=== PATIENT | male | born 1970 | race Caucasian/White ===

== ENCOUNTER 2025-02-11 18:01 | Emergency (ER) | payer BC, SELFPAY ==
--- NOTE | ~2025-02-11 | XR_ITS ---
CLINICAL HISTORY: cough, fever 2 view chest x-ray Comparison: None provided Findings: The lungs are clear. Heart size is normal. No acute fracture. IMPRESSION: 1. No acute findings. This document has been electronically signed by: Evangelista Ricketts MD on 02/11/2025 18:27:39
[2025-02-11 18:08] VITALS: BP 150/71; PULSE 81; RESP 18; TEMP 38.1; O2SAT 98; BMI 23.6
--- NOTE | 2025-02-11 18:08 | ED.GENADULT ---
HPI - General Adult General Chief complaint: General Medical Stated complaint: extreme fever, nausea Related Data Allergies Allergy/AdvReac Type Severity Reaction Status Date / Time naproxen (From Aleve) Allergy Hives Verified 02/11/25 18:11 [facility] Social History Social History Advance Directives: No Advance Directives Information Provided: No Do you have a plan to hurt others: No Plan Physical Exam ED Vital Signs: Vital Signs - 24 hr 02/11/25 18:08 Temperature 100.5 F H Pulse Rate 81 Respiratory Rate 18 Blood Pressure 150/71 H Pulse Oximetry 98 Oxygen Delivery Method Room Air BMI result Body Mass Index 23.6 Course Course Course Narrative: This is a Rapid Medical Examination (RME) performed by Mic Crump PA-C in triage. Full HPI, ROS, assessment and treatment plan per primary provider in the Main ED. Hx: 55 yo M here with fevers, posterior neck pain, dry cough, and extreme fatigue x1 week. no known sick or insect bites. states he has not been outside very often. seen at , neg covid/rsv/flu/strep, given tylenol and told to come to ED. PE/vitals: Posterior oropharynx without erythema or edema, no tonsillar exudates or peritonsillar masses, uvula midline, controlling secretions, speaking in complete sentences. Hoarse voice. No cervical lymphadenopathy. no tenderness over midline c spine. able to flex chin to chest without significant pain. Plan: labs, repeat viral/strep swabs Reevaluation(s) Reevaluation #1: Patient left the emergency department before myself or any of the other clinicians could review or explain physical exam findings, test results, need or lack there of for additional testing, treatment options, or a treatment plan. Medical Decision Making Lab Data 02/11/25 18:48 02/11/25 18:48 Labs: Lab Results 02/11/25 Range/Units 18:48 WBC 5.5 (4.8-10.8) X10*3/uL RBC 4.04 L (4.60-5.80) X10*6/uL Hgb 12.5 L (14.0-18.0) g/dl Hct 34.5 L (42.0-52.0) % MCV 85.4 (80.0-98.0) fL MCH 30.9 (27.0-33.0) pg MCHC 36.2 H (31.0-36.0) g/dl RDW 12.5 (11.0-16.0) % Plt Count 223 (160-400) X10*3/uL MPV 8.5 L (9.4-12.4) fL Immature Gran % (Auto) 0.2 (0.0-0.4) % Neut % (Auto) 53.0 (45-73) % Lymph % (Auto) 26.4 (20-40) % [place] % (Auto) 16.7 H (2-11) % Eos % (Auto) 3.3 (0-4) % Baso % (Auto) 0.4 (0-2) % Lymph # (Auto) 1.5 (1.2-4.9) X10*3/uL [place] # (Auto) 0.9 (0.1-1.2) X10*3/uL Eos # (Auto) 0.2 (0.0-0.4) X10*3/uL Baso # (Auto) 0.0 (0.0-0.2) X10*3/uL Abs Immat Gran (auto) 0.01 (0.00-0.03) X10*3/uL Absolute Neuts (auto) 2.9 (2.0-8.3) x10*3/uL Absolute Nucleated RBC 0.000 (0.0-0.012) X10*3/uL Nucleated RBC % (auto) 0.0 (0.0-0.2) /100WBC Sodium 132 L (135-145) mmol/L Potassium 3.6 (3.3-5.1) mmol/L Chloride 95 L (96-108) mmol/L Carbon Dioxide 28 (22-29) mmol/L Anion Gap 13 (12-20) BUN 9 (9-16) mg/dL Creatinine 1.07 (0.5-1.4) mg/dL Estim Creat Clear Calc 75.4 Estimated GFR > 60 Random Glucose 109 (60-115) mg/dL Calcium 8.9 (8.4-10.2) mg/dL Magnesium 2.1 (1.6-2.6) mg/dL Total Bilirubin 0.4 (0.0-1.0) mg/dL AST 51 H (5-37) U/L ALT 37 (0-40) U/L Alkaline Phosphatase 71 (39-117) U/L Total Protein 7.2 (6.5-8.0) g/dL Albumin 4.3 (3.5-5.0) g/dL Influenza Type A (PCR) NEGATIVE (Negative) Influenza Type B (PCR) NEGATIVE (Negative) RSV RNA Qual (PCR) NEGATIVE (Negative) SARS-CoV-2 RNA (RT-PCR) NEGATIVE (Negative) S. pyogenes GrpA TOBI Negative (Negative) Discharge Plan Discharge Clinical Impression: Fever Patient Disposition: Left W/O Completing Treatment Discharge Date/Time: 02/11/25 22:16
[2025-02-11 18:55] LABS: MANUAL DIFF FLAG NO
[2025-02-11 18:58] LABS: Hematocrit 34.5 % (42.0-52.0); Hemoglobin 12.5 g/dl (14.0-18.0); Imm Gran Abs Auto 0.01 X10*3/uL (0.00-0.03); Imm Gran Pct Auto 0.2 % (0.0-0.4); Lymphocytes Absolute Auto 1.5 X10*3/uL (1.2-4.9); Mean Corpuscular HGB Conc 36.2 g/dl (31.0-36.0); Mean Corpuscular Hemoglobin 30.9 pg (27.0-33.0); Mean Corpuscular Volume 85.4 fL (80.0-98.0); NRBC Abs Auto 0.000 X10*3/uL (0.0-0.012); NRBC Pct Auto 0.0 /100WBC (0.0-0.2); Platelet Count 223 X10*3/uL (160-400); Red Blood Count 4.04 X10*6/uL (4.60-5.80); White Blood Count 5.5 X10*3/uL (4.8-10.8)
[2025-02-11 19:02] LABS: IDNOW Serial# 58CA691E; Strep A Nucleic Acid Negative (Negative)
[2025-02-11 19:12] LABS: Alanine Aminotransferase 37 U/L (0-40); Albumin Level 4.3 g/dL (3.5-5.0); Alkaline Phosphatase 71 U/L (39-117); Anion Gap 13 (12-20); Aspartate Amino Transferase 51 U/L (5-37); Blood Urea Nitrogen 9 mg/dL (9-16); Calcium 8.9 mg/dL (8.4-10.2); Carbon Dioxide 28 mmol/L (22-29); Chloride 95 mmol/L (96-108); Creatinine Clr Calc Pharmacy 75.4; Estimated Glomerular Filt Rate > 60; Magnesium 2.1 mg/dL (1.6-2.6); Potassium 3.6 mmol/L (3.3-5.1); Sodium 132 mmol/L (135-145); Total Protein 7.2 g/dL (6.5-8.0)
[2025-02-11 19:41] LABS: Resp Syncy Virus RNA Qual PCR NEGATIVE (Negative); SARS COV2 PCR INHOUSE NEGATIVE (Negative)
--- NOTE | 2025-02-11 22:15 | PC.NURSE ---
[facility] d/t wait time.
--- OUTSIDE RECORDS SUMMARY | 2025-02-11 22:15 | XMS_ITS | Encounter Summary ---
Author Organization [facility] Address [address] [place] [address] Care Team Providers Care Cupola Liner Helper Name Role Phone Akshat Chowdary MD Primary Care Provider Encounter Details Date Type Department Care Team (Latest Contact Info) Description 06/23/2024 Lab Requisition [facility] - Main Lab [address] [facility] [place] [address] Markie Harper MD [address] [address] Encounter for sterilization Social History Tobacco Use Types Packs/Day Years Used Date Smoking Tobacco: Former Smokeless Tobacco: Never Alcohol Use Standard Drinks/Week Comments Yes 0 (1 standard drink = 0.6 oz pur e alcohol) Sex and Gender Information Value Date Recorded Sex Assigned at Not on file Legal Sex Male 11:09 AM EST Gender Identity Not on file Sexual Orientation Not on file documented as of this encounter Plan of Treatment Not on file documented as of this encounter Procedures Procedure Name Priority Date/Time Associated Diagnosis Comments AP OUTSIDE CONSULT Routine 06/20/2024 Encounter for sterilization documented in this encounter Results * Anatomic pathology outside consult (06/20/2024) Final Diagnosis A. Vas Deferens, Right: -SEGMENT OF NORMAL VAS DEFERENS WITH EPITHELIUM/ LUMEN IDENTIFIED. B. Vas Deferens, Left: -SEGMENT OF NORMAL VAS DEFERENS WITH EPITHELIUM/ LUMEN IDENTIFIED. 06/26/2024 12:43 PM EST [facility] Clinical Information Z30.2 Encounter for sterilization [id number] 06/26/2024 12:43 PM EST [facility] Gross Description A. Vas Deferens, Right, Right Vas Deferens: Labeled right vas deferens . Received in formalin is a 0.2 x 0.3 cm rubbery, membreno, tubular portion of tissue, with a central pinpoint lumen, which is submitted in toto in one cassette, between sponges, one piece, embed on end. (The luminal aspect is inked red to assist with embedding orientation.) B. Vas Deferens, Left, Left Vas Deferens: Labeled left vas deferens . Received in formalin is a 0.2 x 0.3 cm rubbery, membreno, tubular portion of tissue, with a central pinpoint lumen, which is submitted in toto in one cassette, between sponges, one piece, embed on end. (The luminal aspect is inked red to assist with embedding orientation.) /al 06/26/2024 12:43 PM [facility] Disclaimer Unless otherwise specified, all tissue is 10% NB formalin fixed and paraffin embedded. Technical pathology services provided by [facility] at [address] [place] [address] [address], [place] [address] (CLIA #[id number]/Soila Mccormack MD, Saw Operator) 06/26/2024 12:43 PM EST [facility] Tissue Structure of left vas deferens / Unknown 06/20/2024 06/23/2024 5:19 PM EST Tissue specimen (specimen) Structure of left vas deferens / Unknown 06/20/2024 06/23/2024 5:19 PM EST us Markie Harper MD LAB PATHOLOGY ORDERABLES Fin al Result [facility] [address] [place] [address], documented in this encounter Visit Diagnoses Diagnosis Encounter for sterilization Sterilization documented in this encounter Care Teams Cupola Liner Helper Relationship Specialty Start Date End Date Akshat Chowdary MD PCP - General Internal Medicine 03/15/17 documented as of this encounter
--- OUTSIDE RECORDS SUMMARY | 2025-02-11 22:16 | XMS_ITS | Patient Health Record ---
Author Organization [facility] [address] Address [address] [place] [address] Care Team Providers Care Glass Smoother Name Role Phone Yanira Sorto Unavailable [phone] MARY LONGO Unavailable [phone] Allergies Allergen (clinical drug ingredient) Drug/Non Drug Allergy documented on EMR Reaction Allergy Type Onset Date Status naproxen Naproxen hives Drug Allergy Active Alive Adult Premium Unknown Drug Allergy Active Reason For Referral Reason Urology PVU Diagnosis 1 Vasectomy evaluation (Z30.09) Referral Organization [facility] [address] Referring Provider First Name MARY Referring Provider Last Name DONTA Referring Provider Speciality Internal M edicine Referred Provider Specialty Urology General Notes Joann Serna 03/19/2024 10:23:04 AM > Faxed referral and office notes, gave pt phone number to schedule appt. phone [phone] fax: [phone] Antonio Redena 03/26/2024 03:57:01 PM > Scheduled for an appointment on 04/25/2024 at 10:30 am. Pt aware Referral Priority Routine Medications Medication SIG (Take, Route, Fr equency, Duration) Notes Start Date End Date Status ZyrTEC Allergy 10 MG 1 tablet Orally Once a day Active Omeprazole 10 MG 1 capsule 30 minutes before morning meal Orally Once a day A ctive Social History Tobacco Use: Social History Observation Description Date Details (start date - stop date) Former Smoker NA - NA Tobacco Use/Smoking Question Answer Notes Are you a former smoker How long has it been since y ou last smoked? > 10 years Additional Findings: Tobacco User Light cigarett e smoker ((1-9 cigs/day) Alcohol Screen (Audit-C) Question Answer Notes Did you have a drink contain ing alcohol in the past year? Yes How often did you have a dri nk containing alcohol in the past year? 2 to 3 times a week (3 points) How many drinks did you have on a typical day when you were drinking in the past year? 1 or 2 drinks (0 point) How often did you have 6 or more drinks on one occasion in the past year? Never (0 point) Points 3 Interpretation Negative Problems Problem Type SNOMED Code ICD Code Onset Dates Problem Status W/U Status Risk Notes Problem Vitamin D deficiency (12551416) Vitamin D deficiency, unspecified (E55.9) Active confirmed Problem Lipid screening (233809642) Encounter for screening for lipoid disorders (Z13.220) Active confirmed Problem Essential hypertension (07848486) Essential hypertension (I10) Active confirmed Problem Seasonal allergy (248646099) Seasonal allergies (J30.2) Active confirmed Problem Gastroesophageal reflux disease without esophagitis (415770832) Gastroesophageal reflux disease without esophagitis (K21.9) Active confirmed Problem Contraception care education (884796415) Vasectomy evaluation (Z30.09) Active confirmed Problem Gastroesophageal reflux disease (264658914) GERD without esophagitis (K21.9) Active confirmed Vital Signs Heart Rate 78 /min 04/18/2024 Blood pressure diastolic 77 mm Hg 04/18/2024 Oximetry 97 % 04/18/2024 Height 70 in 04/18/2024 Blood pressure systolic 144 mm Hg 04/18/2024 Weight 174 lbs 04/18/2024 BMI 24.96 kg/m2 04/18/2024 Encounters Encounter Location Date Provider Diagnosis [facility] [address] [address] 03/19/2024 MARY LONGO Seasonal allergies J 30.2 ; Encounter for general adult medical examination without abnormal findings Z00.00 ; Gastroesophageal reflux disease without esophagitis K21.9 ; Encounter for screening for lipoid disorders Z13.220 and Vitamin D deficiency, unspecified E55.9 [facility] [address] [address] 04/18/2024 MARY LONGO Annual physical exam Z00.00 ; Essential hypertension I10 ; GERD without esophagitis K21.9 and Seasonal allergies J30.2 [facility] [address] [id number] MARY LONGO Assessments Encounter Date Diagnosis (ICD Code) Assessment Notes Treatment Notes Treatment Clinical Notes Section Notes 03/19/2024 Encounter for general adult medical examination without abnormal findings (ICD-10 - Z00.00) Frank is a 54-year-old male with history of acid reflux and seasonal allergies who presents to the office today for new patient visit. Patient was warmly welcomed to the practice. He is coming from [facility] and last CPE with labs approximately 1 year ago. Medication, allergies, surgeries, hospitalizations, and social history reviewed with the patient. Problem list updated. This morning the patient reports he feels well and offers no acute complaints. Requesting referral to urology for vasectomy. On exam patient is alert and oriented to person, place, time, and event. Cardiopulmonary exam and abdominal exam unremarkable. The patient will follow-up in office on 1 month for CPE and labs. All patient questions answered to his satisfaction. #Acid reflux: Stable at this time, patient is asymptomatic. Reports he has had an endoscopy before which led to diagnosis of silent acid reflux. Continue aegs-itv-dqczaix omeprazole as needed. Educated on proper use of medication and side effect profile. #Seasonal allergies: Stable at this time. Continue ahgd-tzs-mzwuplf Zyrtec. Educated on proper use of medication and side effect profile. #Single episode of high blood pressure: BP this morning 152/84. Patient does not take anti-hypertensives. Lifestyle modifications to lower blood pressure include consuming healthy diet, reducing salt intake, exercising, and maintaining a healthy weight. Patient educated on red flag signs of hypertension including but not limited to headache, chest pain, shortness of breath, nausea, vomiting, and diarrhea. Will follow-up in 4 weeks. All questions have been answered to patient's satisfaction. Patient verbalized understanding of diagnosis and treatments explained. To call sooner prior to next visit it any questions/concerns arise. Case discussed with collaborating physician Chichi Davis who reviewed the assessment and plan. Chart, medications, labs, vital signs reviewed. Dictation was accomplished with the use of [employer] voice recognition software, which is prone to medical misidentifications and grammatical errors. This are unintentional and the practitioner does try to identify and correct these, but some could still be present. Please do not hesitate to contact practitioner for clarification. 03/19/2024 Seasonal allergies (ICD-10 - J30.2) Frank is a 54-year-old male with history of acid reflux and seasonal allergies who presents to the office today for new patient visit. Patient was warmly welcomed to the practice. He is coming from [facility] and last CPE with labs approximately 1 year ago. Medication, allergies, surgeries, hospitalizations, and social history reviewed with the patient. Problem list updated. This morning the patient reports he feels well and offers no acute complaints. Requesting referral to urology for vasectomy. On exam patient is alert and oriented to person, place, time, and event. Cardiopulmonary exam and abdominal exam unremarkable. The patient will follow-up in office on 1 month for CPE and labs. All patient questions answered to his satisfaction. #Acid reflux: Stable at this time, patient is asymptomatic. Reports he has had an endoscopy before which led to diagnosis of silent acid reflux. Continue qfdb-rpl-ofbvdec omeprazole as needed. Educated on proper use of medication and side effect profile. #Seasonal allergies: Stable at this time. Continue itrq-okq-ymeqnjx Zyrtec. Educated on proper use of medication and side effect profile. #Single episode of high blood pressure: BP this morning 152/84. Patient does not take anti-hypertensives. Lifestyle modifications to lower blood pressure include consuming healthy diet, reducing salt intake, exercising, and maintaining a healthy weight. Patient educated on red flag signs of hypertension including but not limited to headache, chest pain, shortness of breath, nausea, vomiting, and diarrhea. Will follow-up in 4 weeks. All questions have been answered to patient's satisfaction. Patient verbalized understanding of diagnosis and treatments explained. To call sooner prior to next visit it any questions/concerns arise. Case discussed with collaborating physician Chichi Davis who reviewed the assessment and plan. Chart, medications, labs, vital signs reviewed. Dictation was accomplished with the use of [employer] voice recognition software, which is prone to medical misidentifications and grammatical errors. This are unintentional and the practitioner does try to identify and correct these, but some could still be present. Please do not hesitate to contact practitioner for clarification. 04/18/2024 Essential hypertension (ICD-10 - I10) Patient seen and examined. Comprehensive discussion was done on the following. # Acid reflux: Stable at this time, asymptomatic in office today. Reports history of an endoscopy at which time led to the diagnosis of silent acid reflux. Continue pnpb-saq-jbtiaof omeprazole as needed. Educated proper use of medication and expected side effect profile. Will continue to monitor. # Seasonal allergies: Stable at this time. Continue ycws-xpz-rrdnoev Zyrtec as needed. Educated on proper use of medication and expected side effect profile. Will continue to monitor. # Hypertension: Blood pressure in office today 144/77. Blood pressure at previous visit 152/84. Patient does not take any antihypertensives. He states that he would prefer not to take an antihypertensive medication at this time. We discussed that untreated high blood pressure can increase the risk of other comorbidities including stroke, kidney disease, heart attack, and aneurysm among others. Patient states that he has a blood pressure monitor at home. Advised the patient that he should monitor his blood pressure over the next 1 to 2 weeks and document those pressures on a piece of paper. Goal blood pressure is less than 130/90. Advised to contact the office after 1 to 2 weeks of documented pressures and inform staff of these numbers. Will continue to monitor and may need to see sooner for blood pressure follow-up. Patient demonstrates understanding. # Preventative medicine: Patient is due for Tdap vaccine at this time. Advised patient that this vaccine protects against tetanus, diphtheria, and pertussis. Informed the patient that since he has a 1 month old daughter at home it may be beneficial to obtain this vaccine. He demonstrates understanding. Patient is also due for colonoscopy at this time, will order. 1. Nutrition: It is important to follow a healthy diet based on lots of vegetables and legumes and good fat. Avoid processed food and processed carbohydrates. Prepare your own meals. Read labels and avoid high fructose corn syrup, processed chemicals added to increase shelf life and preprepared meals. Avoid fast foods. Eat slowly and plan meals for a week. Try to count calories and be mindful of daily calorie intake. Get into the habit of keeping an eye on your weight by using an appropriate scale. Learn to log exercise and discussed fitness Apps like [employer]loseit which can help keep log off calories taken versus calories burned. Local food should be preferred. Discussed Dirty Dozen Versus Clean Fifteen. Discussed healthy supplements like fish oil, Tumeric, Curcumin, Melatonin, Resveratrol, Probiotics, Vitamin-D, Alpha-Lipoic acid, Vitamin-D and coconut oil. 2. It is important to exercise regularly. Is a good habit to walk at least 30 minutes a day. Gentle weightlifting with standard precautions to protect the back. Finding activity like cycling or hiking and get into the habit of engaging in it. Stretching before and after the exercises important. It is also important to contact me if there are any problems like shortness of breath, chest pain, back pain and joint or muscle pain associated with the exercise. 3. Discussed age appropriate screening guidelines. Colonoscopy needs to start at age 50 with stool for occult blood as appropriate. There is a new test that can test for genetic abnormalities in the stool sample, Cologuard. This would not replace a colonoscopy but could be used as a screening tool for patients who do not want a colonoscopy. We discussed the importance of early detection of colon cancer. 4. Discussed current PSA screening. PSA screening can be done in most patients between age 50 and 65. However early detection of prostate cancer needs to carefully be balanced with complications with treatment. These include incontinence, impotence etc. Each patient should decide if they would like to have this test. 5. Discussed safe driving and no use of smart phone while driving 6. Age-appropriate immunizations were discussed. A tetanus booster is needed every 10 years. Flu vaccine is recommended every year just before the start of the flu season. Shingles vaccine is recommended after age 50 but not all insurances cover it. Pneumonia vaccine is given after age 65 unless there are certain comorbidities for which it is started earlier. 7. Diagnostic labs were discussed. These could include/not limited to CBC CMP and lipids with fasting blood glucose and insulin levels. Vitamin D and hemoglobin A1c testing might be appropriate. All questions have been answered to patient's satisfaction. Patient verbalized understanding of diagnosis and treatments explained. Advised to call sooner prior to next visit it any questions/concerns arise. Case discussed with collaborating physician Chichi Davis who reviewed the assessment and plan. Chart, medications, labs, vital signs reviewed. Dictation was accomplished with the use of [employer] voice recognition software, which is prone to medical misidentifications and grammatical errors. This are unintentional and the practitioner does try to identify and correct these, but some could still be present. Please do not hesitate to contact practitioner for clarification. 04/18/2024 Annual physical exam (ICD-10 - Z00.00) Patient seen and examined. Comprehensive discussion was done on the following. # Acid reflux: Stable at this time, asymptomatic in office today. Reports history of an endoscopy at which time led to the diagnosis of silent acid reflux. Continue wuzi-gss-esqaamt omeprazole as needed. Educated proper use of medication and expected side effect profile. Will continue to monitor. # Seasonal allergies: Stable at this time. Continue lfyp-voz-mwfnauc Zyrtec as needed. Educated on proper use of medication and expected side effect profile. Will continue to monitor. # Hypertension: Blood pressure in office today 144/77. Blood pressure at previous visit 152/84. Patient does not take any antihypertensives. He states that he would prefer not to take an antihypertensive medication at this time. We discussed that untreated high blood pressure can increase the risk of other comorbidities including stroke, kidney disease, heart attack, and aneurysm among others. Patient states that he has a blood pressure monitor at home. Advised the patient that he should monitor his blood pressure over the next 1 to 2 weeks and document those pressures on a piece of paper. Goal blood pressure is less than 130/90. Advised to contact the office after 1 to 2 weeks of documented pressures and inform staff of these numbers. Will continue to monitor and may need to see sooner for blood pressure follow-up. Patient demonstrates understanding. # Preventative medicine: Patient is due for Tdap vaccine at this time. Advised patient that this vaccine protects against tetanus, diphtheria, and pertussis. Informed the patient that since he has a 1 month old daughter at home it may be beneficial to obtain this vaccine. He demonstrates understanding. Patient is also due for colonoscopy at this time, will order. 1. Nutrition: It is important to follow a healthy diet based on lots of vegetables and legumes and good fat. Avoid processed food and processed carbohydrates. Prepare your own meals. Read labels and avoid high fructose corn syrup, processed chemicals added to increase shelf life and preprepared meals. Avoid fast foods. Eat slowly and plan meals for a week. Try to count calories and be mindful of daily calorie intake. Get into the habit of keeping an eye on your weight by using an appropriate scale. Learn to log exercise and discussed fitness Apps like [employer]oseit which can help keep log off calories taken versus calories burned. Local food should be preferred. Discussed Dirty Dozen Versus Clean Fifteen. Discussed healthy supplements like fish oil, Tumeric, Curcumin, Melatonin, Resveratrol, Probiotics, Vitamin-D, Alpha-Lipoic acid, Vitamin-D and coconut oil. 2. It is important to exercise regularly. Is a good habit to walk at least 30 minutes a day. Gentle weightlifting with standard precautions to protect the back. Finding activity like cycling or hiking and get into the habit of engaging in it. Stretching before and after the exercises important. It is also important to contact me if there are any problems like shortness of breath, chest pain, back pain and joint or muscle pain associated with the exercise. 3. Discussed age appropriate screening guidelines. Colonoscopy needs to start at age 50 with stool for occult blood as appropriate. There is a new test that can test for genetic abnormalities in the stool sample, Cologuard. This would not replace a colonoscopy but could be used as a screening tool for patients who do not want a colonoscopy. We discussed the importance of early detection of colon cancer. 4. Discussed current PSA screening. PSA screening can be done in most patients between age 50 and 65. However early detection of prostate cancer needs to carefully be balanced with complications with treatment. These include incontinence, impotence etc. Each patient should decide if they would like to have this test. 5. Discussed safe driving and no use of smart phone while driving 6. Age-appropriate immunizations were discussed. A tetanus booster is needed every 10 years. Flu vaccine is recommended every year just before the start of the flu season. Shingles vaccine is recommended after age 50 but not all insurances cover it. Pneumonia vaccine is given after age 65 unless there are certain comorbidities for which it is started earlier. 7. Diagnostic labs were discussed. These could include/not limited to CBC CMP and lipids with fasting blood glucose and insulin levels. Vitamin D and hemoglobin A1c testing might be appropriate. All questions have been answered to patient's satisfaction. Patient verbalized understanding of diagnosis and treatments explained. Advised to call sooner prior to next visit it any questions/concerns arise. Case discussed with collaborating physician Chichi Davis who reviewed the assessment and plan. Chart, medications, labs, vital signs reviewed. Dictation was accomplished with the use of [employer] voice recognition software, which is prone to medical misidentifications and grammatical errors. This are unintentional and the practitioner does try to identify and correct these, but some could still be present. Please do not hesitate to contact practitioner for clarification. 04/18/2024 GERD without esophagitis (ICD-10 - K21.9) Patient seen and examined. Comprehensive discussion was done on the following. # Acid reflux: Stable at this time, asymptomatic in office today. Reports history of an endoscopy at which time led to the diagnosis of silent acid reflux. Continue jndm-yqd-nwknian omeprazole as needed. Educated proper use of medication and expected side effect profile. Will continue to monitor. # Seasonal allergies: Stable at this time. Continue ygds-elz-hxdwklc Zyrtec as needed. Educated on proper use of medication and expected side effect profile. Will continue to monitor. # Hypertension: Blood pressure in office today 144/77. Blood pressure at previous visit 152/84. Patient does not take any antihypertensives. He states that he would prefer not to take an antihypertensive medication at this time. We discussed that untreated high blood pressure can increase the risk of other comorbidities including stroke, kidney disease, heart attack, and aneurysm among others. Patient states that he has a blood pressure monitor at home. Advised the patient that he should monitor his blood pressure over the next 1 to 2 weeks and document those pressures on a piece of paper. Goal blood pressure is less than 130/90. Advised to contact the office after 1 to 2 weeks of documented pressures and inform staff of these numbers. Will continue to monitor and may need to see sooner for blood pressure follow-up. Patient demonstrates understanding. # Preventative medicine: Patient is due for Tdap vaccine at this time. Advised patient that this vaccine protects against tetanus, diphtheria, and pertussis. Informed the patient that since he has a 1 month old daughter at home it may be beneficial to obtain this vaccine. He demonstrates understanding. Patient is also due for colonoscopy at this time, will order. 1. Nutrition: It is important to follow a healthy diet based on lots of vegetables and legumes and good fat. Avoid processed food and processed carbohydrates. Prepare your own meals. Read labels and avoid high fructose corn syrup, processed chemicals added to increase shelf life and preprepared meals. Avoid fast foods. Eat slowly and plan meals for a week. Try to count calories and be mindful of daily calorie intake. Get into the habit of keeping an eye on your weight by using an appropriate scale. Learn to log exercise and discussed fitness Apps like [employer] which can help keep log off calories taken versus calories burned. Local food should be preferred. Discussed Dirty Dozen Versus Clean Fifteen. Discussed healthy supplements like fish oil, Tumeric, Curcumin, Melatonin, Resveratrol, Probiotics, Vitamin-D, Alpha-Lipoic acid, Vitamin-D and coconut oil. 2. It is important to exercise regularly. Is a good habit to walk at least 30 minutes a day. Gentle weightlifting with standard precautions to protect the back. Finding activity like cycling or hiking and get into the habit of engaging in it. Stretching before and after the exercises important. It is also important to contact me if there are any problems like shortness of breath, chest pain, back pain and joint or muscle pain associated with the exercise. 3. Discussed age appropriate screening guidelines. Colonoscopy needs to start at age 50 with stool for occult blood as appropriate. There is a new test that can test for genetic abnormalities in the stool sample, Cologuard. This would not replace a colonoscopy but could be used as a screening tool for patients who do not want a colonoscopy. We discussed the importance of early detection of colon cancer. 4. Discussed current PSA screening. PSA screening can be done in most patients between age 50 and 65. However early detection of prostate cancer needs to carefully be balanced with complications with treatment. These include incontinence, impotence etc. Each patient should decide if they would like to have this test. 5. Discussed safe driving and no use of smart phone while driving 6. Age-appropriate immunizations were discussed. A tetanus booster is needed every 10 years. Flu vaccine is recommended every year just before the start of the flu season. Shingles vaccine is recommended after age 50 but not all insurances cover it. Pneumonia vaccine is given after age 65 unless there are certain comorbidities for which it is started earlier. 7. Diagnostic labs were discussed. These could include/not limited to CBC CMP and lipids with fasting blood glucose and insulin levels. Vitamin D and hemoglobin A1c testing might be appropriate. All questions have been answered to patient's satisfaction. Patient verbalized understanding of diagnosis and treatments explained. Advised to call sooner prior to next visit it any questions/concerns arise. Case discussed with collaborating physician Chichi Davis who reviewed the assessment and plan. Chart, medications, labs, vital signs reviewed. Dictation was accomplished with the use of [employer] voice recognition software, which is prone to medical misidentifications and grammatical errors. This are unintentional and the practitioner does try to identify and correct these, but some could still be present. Please do not hesitate to contact practitioner for clarification. 03/19/2024 Gastroesophageal reflux disease without esophagitis (ICD-10 - K21.9) Frank is a 54-year-old male with history of acid reflux and seasonal allergies who presents to the office today for new patient visit. Patient was warmly welcomed to the practice. He is coming from [facility] and last CPE with labs approximately 1 year ago. Medication, allergies, surgeries, hospitalizations, and social history reviewed with the patient. Problem list updated. This morning the patient reports he feels well and offers no acute complaints. Requesting referral to urology for vasectomy. On exam patient is alert and oriented to person, place, time, and event. Cardiopulmonary exam and abdominal exam unremarkable. The patient will follow-up in office on 1 month for CPE and labs. All patient questions answered to his satisfaction. #Acid reflux: Stable at this time, patient is asymptomatic. Reports he has had an endoscopy before which led to diagnosis of silent acid reflux. Continue eoxn-xam-wwjaptv omeprazole as needed. Educated on proper use of medication and side effect profile. #Seasonal allergies: Stable at this time. Continue dxla-nxu-msnuhos Zyrtec. Educated on proper use of medication and side effect profile. #Single episode of high blood pressure: BP this morning 152/84. Patient does not take anti-hypertensives. Lifestyle modifications to lower blood pressure include consuming healthy diet, reducing salt intake, exercising, and maintaining a healthy weight. Patient educated on red flag signs of hypertension including but not limited to headache, chest pain, shortness of breath, nausea, vomiting, and diarrhea. Will follow-up in 4 weeks. All questions have been answered to patient's satisfaction. Patient verbalized understanding of diagnosis and treatments explained. To call sooner prior to next visit it any questions/concerns arise. Case discussed with collaborating physician Chichi Davis who reviewed the assessment and plan. Chart, medications, labs, vital signs reviewed. Dictation was accomplished with the use of [employer] voice recognition software, which is prone to medical misidentifications and grammatical errors. This are unintentional and the practitioner does try to identify and correct these, but some could still be present. Please do not hesitate to contact practitioner for clarification. 04/18/2024 Seasonal allergies (ICD-10 - J30.2) Patient seen and examined. Comprehensive discussion was done on the following. # Acid reflux: Stable at this time, asymptomatic in office today. Reports history of an endoscopy at which time led to the diagnosis of silent acid reflux. Continue nsnp-uey-nxbalud omeprazole as needed. Educated proper use of medication and expected side effect profile. Will continue to monitor. # Seasonal allergies: Stable at this time. Continue oixz-vna-cnxjklg Zyrtec as needed. Educated on proper use of medication and expected side effect profile. Will continue to monitor. # Hypertension: Blood pressure in office today 144/77. Blood pressure at previous visit 152/84. Patient does not take any antihypertensives. He states that he would prefer not to take an antihypertensive medication at this time. We discussed that untreated high blood pressure can increase the risk of other comorbidities including stroke, kidney disease, heart attack, and aneurysm among others. Patient states that he has a blood pressure monitor at home. Advised the patient that he should monitor his blood pressure over the next 1 to 2 weeks and document those pressures on a piece of paper. Goal blood pressure is less than 130/90. Advised to contact the office after 1 to 2 weeks of documented pressures and inform staff of these numbers. Will continue to monitor and may need to see sooner for blood pressure follow-up. Patient demonstrates understanding. # Preventative medicine: Patient is due for Tdap vaccine at this time. Advised patient that this vaccine protects against tetanus, diphtheria, and pertussis. Informed the patient that since he has a 1 month old daughter at home it may be beneficial to obtain this vaccine. He demonstrates understanding. Patient is also due for colonoscopy at this time, will order. 1. Nutrition: It is important to follow a healthy diet based on lots of vegetables and legumes and good fat. Avoid processed food and processed carbohydrates. Prepare your own meals. Read labels and avoid high fructose corn syrup, processed chemicals added to increase shelf life and preprepared meals. Avoid fast foods. Eat slowly and plan meals for a week. Try to count calories and be mindful of daily calorie intake. Get into the habit of keeping an eye on your weight by using an appropriate scale. Learn to log exercise and discussed fitness Apps like [employer] which can help keep log off calories taken versus calories burned. Local food should be preferred. Discussed D[employer] Dozen Versus Clean Fifteen. Discussed healthy supplements like fish oil, Tumeric, Curcumin, Melatonin, Resveratrol, Probiotics, Vitamin-D, Alpha-Lipoic acid, Vitamin-D and coconut oil. 2. It is important to exercise regularly. Is a good habit to walk at least 30 minutes a day. Gentle weightlifting with standard precautions to protect the back. Finding activity like cycling or hiking and get into the habit of engaging in it. Stretching before and after the exercises important. It is also important to contact me if there are any problems like shortness of breath, chest pain, back pain and joint or muscle pain associated with the exercise. 3. Discussed age appropriate screening guidelines. Colonoscopy needs to start at age 50 with stool for occult blood as appropriate. There is a new test that can test for genetic abnormalities in the stool sample, Cologuard. This would not replace a colonoscopy but could be used as a screening tool for patients who do not want a colonoscopy. We discussed the importance of early detection of colon cancer. 4. Discussed current PSA screening. PSA screening can be done in most patients between age 50 and 65. However early detection of prostate cancer needs to carefully be balanced with complications with treatment. These include incontinence, impotence etc. Each patient should decide if they would like to have this test. 5. Discussed safe driving and no use of smart phone while driving 6. Age-appropriate immunizations were discussed. A tetanus booster is needed every 10 years. Flu vaccine is recommended every year just before the start of the flu season. Shingles vaccine is recommended after age 50 but not all insurances cover it. Pneumonia vaccine is given after age 65 unless there are certain comorbidities for which it is started earlier. 7. Diagnostic labs were discussed. These could include/not limited to CBC CMP and lipids with fasting blood glucose and insulin levels. Vitamin D and hemoglobin A1c testing might be appropriate. All questions have been answered to patient's satisfaction. Patient verbalized understanding of diagnosis and treatments explained. Advised to call sooner prior to next visit it any questions/concerns arise. Case discussed with collaborating physician Chichi Davis who reviewed the assessment and plan. Chart, medications, labs, vital signs reviewed. Dictation was accomplished with the use of [employer] voice recognition software, which is prone to medical misidentifications and grammatical errors. This are unintentional and the practitioner does try to identify and correct these, but some could still be present. Please do not hesitate to contact practitioner for clarification. 03/19/2024 Encounter for screening for lipoid disorders (ICD-10 - Z13.220) Frank is a 54-year-old male with history of acid reflux and seasonal allergies who presents to the office today for new patient visit. Patient was warmly welcomed to the practice. He is coming from [facility] and last CPE with labs approximately 1 year ago. Medication, allergies, surgeries, hospitalizations, and social history reviewed with the patient. Problem list updated. This morning the patient reports he feels well and offers no acute complaints. Requesting referral to urology for vasectomy. On exam patient is alert and oriented to person, place, time, and event. Cardiopulmonary exam and abdominal exam unremarkable. The patient will follow-up in office on 1 month for CPE and labs. All patient questions answered to his satisfaction. #Acid reflux: Stable at this time, patient is asymptomatic. Reports he has had an endoscopy before which led to diagnosis of silent acid reflux. Continue bhxc-haq-xkwvkhh omeprazole as needed. Educated on proper use of medication and side effect profile. #Seasonal allergies: Stable at this time. Continue csap-qzy-citvdvj Zyrtec. Educated on proper use of medication and side effect profile. #Single episode of high blood pressure: BP this morning 152/84. Patient does not take anti-hypertensives. Lifestyle modifications to lower blood pressure include consuming healthy diet, reducing salt intake, exercising, and maintaining a healthy weight. Patient educated on red flag signs of hypertension including but not limited to headache, chest pain, shortness of breath, nausea, vomiting, and diarrhea. Will follow-up in 4 weeks. All questions have been answered to patient's satisfaction. Patient verbalized understanding of diagnosis and treatments explained. To call sooner prior to next visit it any questions/concerns arise. Case discussed with collaborating physician Chichi Davis who reviewed the assessment and plan. Chart, medications, labs, vital signs reviewed. Dictation was accomplished with the use of [employer] voice recognition software, which is prone to medical misidentifications and grammatical errors. This are unintentional and the practitioner does try to identify and correct these, but some could still be present. Please do not hesitate to contact practitioner for clarification. 03/19/2024 Vitamin D deficiency, unspecified (ICD-10 - E55.9) Frank is a 54-year-old male with history of acid reflux and seasonal allergies who presents to the office today for new patient visit. Patient was warmly welcomed to the practice. He is coming from [facility] and last CPE with labs approximately 1 year ago. Medication, allergies, surgeries, hospitalizations, and social history reviewed with the patient. Problem list updated. This morning the patient reports he feels well and offers no acute complaints. Requesting referral to urology for vasectomy. On exam patient is alert and oriented to person, place, time, and event. Cardiopulmonary exam and abdominal exam unremarkable. The patient will follow-up in office on 1 month for CPE and labs. All patient questions answered to his satisfaction. #Acid reflux: Stable at this time, patient is asymptomatic. Reports he has had an endoscopy before which led to diagnosis of silent acid reflux. Continue hisq-tky-urilssd omeprazole as needed. Educated on proper use of medication and side effect profile. #Seasonal allergies: Stable at this time. Continue javx-eqr-qwojhwx Zyrtec. Educated on proper use of medication and side effect profile. #Single episode of high blood pressure: BP this morning 152/84. Patient does not take anti-hypertensives. Lifestyle modifications to lower blood pressure include consuming healthy diet, reducing salt intake, exercising, and maintaining a healthy weight. Patient educated on red flag signs of hypertension including but not limited to headache, chest pain, shortness of breath, nausea, vomiting, and diarrhea. Will follow-up in 4 weeks. All questions have been answered to patient's satisfaction. Patient verbalized understanding of diagnosis and treatments explained. To call sooner prior to next visit it any questions/concerns arise. Case discussed with collaborating physician Chichi Davis who reviewed the assessment and plan. Chart, medications, labs, vital signs reviewed. Dictation was accomplished with the use of [employer] voice recognition software, which is prone to medical misidentifications and grammatical errors. This are unintentional and the practitioner does try to identify and correct these, but some could still be present. Please do not hesitate to contact practitioner for clarification. Plan Of Treatment Pending Test Test Name Order Date LIPID PANEL, STANDARD 03/19/2024 COMPREHENSIVE METABOLIC PANEL 03/19/2024 CBC (INCLUDES DIFF/PLT) 03/19/2024 URINALYSIS, COMPLETE 03/19/2024 VITAMIN D,25-OH,TOTAL,IA 03/19/2024 Next Appt Details Provider Name:MARY LONGO , 04/24/2025 08:15:00 AM, [address] [facility], [facility] [address], [place], [address], Insurance Providers Payer Name Payer Address Payer Phone Subscriber Number Group Number Insured Name Patient Relationship to Insured Coverage Start Date Coverage End Date [facility] [address] [place] [address] [phone] [id number] Frank Hendrix Self - patient is the insured Medical (General) History Medical History History ICD Code acid reflux
[2025-02-13 20:48] LABS: A. Phagocytphilium DNA,RT-PCR NOT DETECTED (NOT DETECTED); Babesia Microti DNA, RT-PCR NOT DETECTED (NOT DETECTED); Borrelia Miyamotoi,DNA RT-PCR NOT DETECTED (NOT DETECTED); E.Chaffeensis DNA RT-PCR NOT DETECTED (NOT DETECTED); Lyme(Borrelia ssp)DNA RT-PCR NOT DETECTED (NOT DETECTED)
== END 2025-02-11 22:16 | disposition left against medical advice (07) ==
PROVIDERS: Emergency Medicine; Physician Assistant Medical; Emergency Provider Emergency Medicine
DX: R50.9 Fever, unspecified (principal); R11.0 Nausea; Z53.21 Procedure and treatment not carried out due to patient leaving prior to being seen by health care provider; Z03.818 Encounter for observation for suspected exposure to other biological agents ruled out
CPT/HCPCS: 36415; 71046; 80053; 83735; 85025; 87468; 87469; 87478; 87484; 87637; 87651; 87798; 99281; 99283

== ENCOUNTER → 2025-02-11 18:14 | Outpatient (BNV) | payer BC, SELFPAY | PROVIDERS: Visit Provider Radiology Diagnostic Radiology | DX: R50.9 Fever, unspecified (principal) | CPT/HCPCS: 71046 ==